=== PATIENT | female | born 1990 | race Caucasian/White ===

== ENCOUNTER → 2016-11-24 | Day surgery (SDC) | payer OTHER ==
[~2016-11-24] VITALS: Ht 157.5 cm; Wt 77.6 kg
[~2016-11-24] MED LIST: COLACE 100MG C100 MG PO; NORCO 5-325 TA1 EACH PO
== END | disposition home or self-care (01) ==
LOC: OR 07:40
PROVIDERS: Surgery
PROC: 0FT44ZZ Resection of Gallbladder, Percutaneous Endoscopic Approach (ICD-10-PCS; principal; 2016-11-24 09:30)
DX: K80.10 Calculus of gallbladder with chronic cholecystitis without obstruction (principal); F17.210 Nicotine dependence, cigarettes, uncomplicated; Z98.890 Other specified postprocedural states; Z87.01 Personal history of pneumonia (recurrent); Z82.61 Family history of arthritis; Z82.49 Family history of ischemic heart disease and other diseases of the circulatory system; Z80.3 Family history of malignant neoplasm of breast
CPT/HCPCS: 84703; J0295; J1200; J2250; J2405; J2710; J3010; J7030; J7050; J7120; Q9962